=== PATIENT | male | born 1960 | race African-American/Black ===

== ENCOUNTER 2017-08-31 08:15 | Emergency (ER) | payer OTHER ==
[~2017-08-31] VITALS: Ht 180.3 cm; Wt 100.0 kg
[~2017-08-31 08:15] MED LIST: (None)3.5 GM OP; FLOMAX0.4 M1 PO; GENTAMICIN15 ML/BTL OP; LISINOPRIL10 MG PO; METFORMIN500 M1 PO; NOVOLIN 70/30 SC
[2017-08-31] MEDS ORDERED: GABAPENTIN100 MG PO ×2 (09:04→13:47)
[2017-08-31 09:13] LABS: HEMATOCRIT 39.7 % (39.0-50.0); HEMOGLOBIN 13.4 g/dl (14.0-18.0); IMMATURE GRANULOCYTES 0.2 % (0.0-1.0); MEAN CELL VOLUME 94.1 fL CALC (80.0-100.0); MEAN CORPUSCULAR HGB 31.8 pG CALC (26.0-32.0); MEAN CORPUSCULAR HGB CONC 33.8 g/L CALC (32.0-36.0); NEUT# 2.83 thou/uL (1.82-7.42); RED BLOOD COUNT 4.22 mill/uL (4.70-6.10); RED CELL DISTRI WIDTH 13.2 % (11.5-15.5)
[2017-08-31 09:29] LABS: ALBUMIN 2.9 g/dL (3.2-5.0); BILIRUBIN, TOTAL 0.6 mg/dL (0.0-1.4); CREATININE 1.7 mg/dL (0.7-1.3); POTASSIUM 4.2 mmol/l (3.5-5.1); TOTAL PROTEIN 6.6 g/dL (6.3-8.2)
[2017-08-31] MEDS ORDERED: ZESTRIL10 M1 PO (13:47)
[2017-08-31] MEDS ORDERED: METFORMIN500 M1 PO (13:47)
[2017-08-31] MEDS ORDERED: NOVOLIN N100 UNIT/1 SC (13:47)
[2017-08-31] MEDS ORDERED: AMLODIPINE BESY10 MG PO (13:48)
[2017-08-31 14:02] VITALS: BP 189/111
== END 2017-08-31 14:09 | disposition left against medical advice (07) | DRG 313 ==
LOC: ED 08:15 → ED-I 13:32 → ED 14:09
PROVIDERS: Emergency Medicine
DX: R07.9 Chest pain, unspecified (principal); Z91.19 Patient's noncompliance with other medical treatment and regimen

== ENCOUNTER 2017-09-22 13:54 | Observation (INO) | payer OTHER ==
[~2017-09-22] VITALS: Ht 180.3 cm; Wt 97.6 kg
[~2017-09-22 13:54] MED LIST changes: +AMLODIPINE BESY10 MG PO; +GABAPENTIN100 MG PO; +NOVOLIN N100 UNIT/1 SC; +ZESTRIL10 M1 PO
[2017-09-22] MEDS ORDERED: ASPIRIN 81 LOW81 MG PO (14:59)
[2017-09-22 15:17] LABS: HEMATOCRIT 40.5 % (39.0-50.0); HEMOGLOBIN 13.4 g/dl (14.0-18.0); IMMATURE GRANULOCYTES 0.2 % (0.0-1.0); MEAN CELL VOLUME 95.7 fL CALC (80.0-100.0); MEAN CORPUSCULAR HGB 31.7 pG CALC (26.0-32.0); MEAN CORPUSCULAR HGB CONC 33.1 g/L CALC (32.0-36.0); NEUT# 2.7 thou/uL (1.82-7.42); RED BLOOD COUNT 4.23 mill/uL (4.70-6.10); RED CELL DISTRI WIDTH 13.3 % (11.5-15.5)
[2017-09-22 15:33] LABS: ALBUMIN 2.9 g/dL (3.2-5.0); ALKALINE PHOSPHATASE 58 u/l (38-126); BILIRUBIN, TOTAL 0.4 mg/dL (0.0-1.4); BUN 16 mg/dL (9-20); BUN/CREATININE RATIO 12 (12-20 (CALC)); CHLORIDE 106 mmol/l (95-108); CREATININE 1.3 mg/dL (0.7-1.3); GFR 57 ML/MIN (>=60 (CALC)); GFR FOR AFR.AMER. > 60 ML/MIN (>=60 (CALC)); POTASSIUM 4.3 mmol/l (3.5-5.1); SGOT/AST 33 u/l (17-59); SGPT/ALT 43 u/l (21-72); SODIUM 137 mmol/l (137-146); TOTAL PROTEIN 6.1 g/dL (6.3-8.2)
[2017-09-22 15:36] LABS: ANION GAP 11 (6-22 (CALC)); CARBON DIOXIDE 24 mmol/l (22-30)
[2017-09-22 15:46] LABS: MYOGLOBIN 184 ng/mL (0 - 121)
[2017-09-22 17:00] VITALS: BP 139/76
[2017-09-22 17:00] LABS: MAGNESIUM 1.7 mg/dL (1.6-2.3)
[2017-09-22 19:58] VITALS: BP 128/77
[2017-09-23 04:24] VITALS: BP 142/82
[2017-09-23 06:15] LABS: HEMATOCRIT 39.6 % (39.0-50.0); HEMOGLOBIN 12.7 g/dl (14.0-18.0); IMMATURE GRANULOCYTES 0.4 % (0.0-1.0); MEAN CELL VOLUME 96.6 fL CALC (80.0-100.0); MEAN CORPUSCULAR HGB CONC 32.1 g/L CALC (32.0-36.0); NEUT# 2.66 thou/uL (1.82-7.42); RED BLOOD COUNT 4.1 mill/uL (4.70-6.10); RED CELL DISTRI WIDTH 13.4 % (11.5-15.5)
[2017-09-23 06:28] LABS: ANION GAP 9 (6-22 (CALC)); BUN 17 mg/dL (9-20); BUN/CREATININE RATIO 13 (12-20 (CALC)); CALCULATED LDLCHOLESTEROL 132 mg/dL (62-129 (CALC)); CARBON DIOXIDE 22 mmol/l (22-30); CHLORIDE 108 mmol/l (95-108); CHOLESTEROL HDL RATIO 3.9 (<4.4 (CALC)); CREATININE 1.3 mg/dL (0.7-1.3); GFR 57 ML/MIN (>=60 (CALC)); GFR FOR AFR.AMER. > 60 ML/MIN (>=60 (CALC)); HDL CHOLESTEROL 58 mg/dL (>=40); POTASSIUM 4.3 mmol/l (3.5-5.1); SODIUM 136 mmol/l (137-146); TOTAL CHOLESTEROL 229 mg/dl (0-199); TOTAL TRIGLYCERIDES 195 mg/dl (30-149); VLDL CHOLESTROL 39 mg/dl (8-62 (CALC))
[2017-09-23 07:53] VITALS: BP 165/98
[2017-09-23 11:00] VITALS: BP 142/86
[2017-09-23] MEDS ORDERED: NOVOLIN 70/30 SC (12:17)
[2017-09-23] MEDS ORDERED: ASPIRIN 81 LOW81 MG PO (12:17)
[2017-09-23] MEDS ORDERED: PRAVASTATIN20 MG PO (12:17)
[2017-09-23] MEDS ORDERED: AMLODIPINE BESY10 MG PO (12:17)
[2017-09-23] MEDS ORDERED: METFORMIN500 MG PO (12:17)
[2017-09-23] MEDS ORDERED: GABAPENTIN100 MG PO (12:17)
[2017-09-23] MEDS ORDERED: LISINOPRIL10 MG PO (12:17)
[2017-09-23] MEDS ORDERED: CYCLOBENZAPR5 MG PO (14:33)
[2017-09-23] MEDS ORDERED: TRAMADOL HYDROC50 MG PO (14:33)
== END 2017-09-23 14:13 | disposition home or self-care (01) | DRG 313 ==
LOC: ED 13:54 → ED-I 15:40 → ED 15:52 → MS2 15:53
PROVIDERS: Emergency Medicine; Nurse Practitioner Family; ADMIT Internal Medicine; ATTEND Internal Medicine
DX: R07.2 Precordial pain (principal); M25.512 Pain in left shoulder; I25.10 Atherosclerotic heart disease of native coronary artery without angina pectoris; E11.40 Type 2 diabetes mellitus with diabetic neuropathy, unspecified; E11.65 Type 2 diabetes mellitus with hyperglycemia; I11.0 Hypertensive heart disease with heart failure; I50.9 Heart failure, unspecified; I16.0 Hypertensive urgency; I25.2 Old myocardial infarction; M19.90 Unspecified osteoarthritis, unspecified site; E78.5 Hyperlipidemia, unspecified; Z79.4 Long term (current) use of insulin; Z95.5 Presence of coronary angioplasty implant and graft; Z91.14 Patient's other noncompliance with medication regimen; Z87.891 Personal history of nicotine dependence; Z72.89 Other problems related to lifestyle
CPT/HCPCS: G0378